=== PATIENT | female | born 1930 | race Caucasian/White ===

== ENCOUNTER 2016-11-08 23:57 | Inpatient (IN) | payer MEDICARE ==
--- NOTE | ~2016-11-08 | CO ---
Unit #: [id number] #: [id number] Patient: LYNNE COOPER [id number] [address] [address] [id number] I MR#: [id number] NAME: LYNNE COOPER ROOM: [facility] Age: 86 Sex: F Admission Date: 11/09/2016 : 1930 Attending Physician: Emery Dumas M.D. Primary Care Physician: Madi Ray M.D. Requesting Physician: Emery Dumas M.D. Consultation Date: 11/09/2016 CONSULTATION REPORT REASON FOR HOSPITALIZATION The patient is an 86-year-old white female with a history of coronary artery disease with stent in the RCA and mid ramus, hypertension, hyperlipidemia, sick sinus syndrome, thoracic aortic aneurysm, hypothyroidism, gastroesophageal reflux disease, chronic kidney disease, and peripheral arterial disease with right renal artery stenosis of 50% by angiogram in December 2014, who presented to the emergency room with headache, nausea, vomiting, back pain, urinary frequency, and chest pain. In the ER, her blood pressure was 272/102. Cardiac enzymes were normal. CBC was normal. Potassium was slightly low. GFR was 45. BNP 586. CT scan of the chest showed enlargement of her thoracic aortic aneurysm but no tear or rupture, and the patient is admitted for further evaluation. She has been treated with multiple antihypertensives and antinausea medicines overnight, and currently her blood pressure is 131/57 with a pulse of 94 and an O2 saturation of 94 as well, and she appears to be comfortable and resting. PAST MEDICAL HISTORY 1. Thoracic aortic aneurysm. 2. Osteoarthritis. 3. Gastroesophageal reflux disease. 4. Hiatal hernia. 5. Hypothyroidism. 6. History of Graves disease treated with I-131. 7. Hyperlipidemia. Why she is on no treatment I am not sure. 8. Hypertension. 9. Percutaneous drug-eluting stent x2 to mid right coronary in February 2015. 10. Stenosis of 50% in her right renal artery. PAST SURGICAL HISTORY Cataract extraction. ALLERGIES Iodine, sulfa drug, Asacol, lisinopril, Plendil, hydralazine, Cardura, and latex. MEDICATIONS PRIOR TO ADMISSION 1. Plavix 75 mg daily. 2. Protonix 40 mg b.i.d. 3. Aspirin 81 mg daily. 4. Levothyroxine 112 mcg daily. 5. Losartan 100 mg daily. 6. Catapres 0.2 mg daily and 0.1 mg at bedtime. Unit #: [id number] #: [id number] Patient: LYNNE COOPER 7. Metoprolol 25 mg a.m. and 12.5 mg at bedtime. 8. Nitrostat p.r.n. 9. Iron tablets 1 daily. 10. Neurontin 100 mg at bedtime. 11. Zanaflex 2 mg t.i.d. 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 She is a prior smoker but quit many years ago. Denies any alcohol or drug use. Lives alone. PHYSICAL EXAMINATION GENERAL: She is awake, alert, oriented x3, and in no acute distress. VITAL SIGNS: Mentioned above. HEENT: Unremarkable. NECK: Supple without JVD, bruits, adenopathy, or thyromegaly. CHEST: Clear to auscultation. HEART: Regular rate and rhythm, without any murmurs, rubs, or gallops. ABDOMEN: Soft, nondistended, and nontender, with positive bowel sounds and no hepatosplenomegaly. EXTREMITIES: No clubbing, cyanosis, or edema. GENITOURINARY/RECTAL: Deferred. NEUROLOGIC: Grossly intact. DIAGNOSTIC STUDIES LABORATORY: Cardiac enzymes normal x4 sets. CBC normal. PT and PTT normal. CMP normal except for a random blood sugar of 161, potassium 3.2, and GFR of 45.4. BNP was 586. Urinalysis normal. TSH within normal limits. IMAGING: Chest x-ray with no active disease. Some pulmonary fibrosis, ectasia of the descending aorta, and COPD. CT scan of the head with no active disease. CT scan of the abdomen and pelvis with no active disease. Diverticulosis. CT scan of the chest with emphysema, pulmonary fibrosis, and a 4.1 cm mid thoracic aortic aneurysm 4.4 cm distally without tear or rupture. CARDIOLOGY: EKG sinus tachycardia, PVCs, (1) LVH. IMPRESSION 1. Accelerated hypertension. 2. Atypical chest pain. 3. Coronary artery disease, status post right coronary artery stent. 4. Peripheral artery disease with thoracic aortic aneurysm and right renal artery stenosis. 5. Chronic kidney disease stage 3. 6. Hypokalemia. 7. Hypothyroidism, on supplementation. 8. Hiatal hernia. 9. Gastroesophageal reflux disease. PLAN Recheck potassium, check magnesium, and follow protocol. Lovenox for DVT prophylaxis. Patient is currently on a Cardene drip with adjustments in her medicine. Echocardiogram has been done for the elevated BNP with results pending. Her home medications have been resumed with the addition of Lasix 40 mg daily and clonidine increased to 0.1 t.i.d. She is on labetalol 200 mg b.i.d., losartan 100 mg b.i.d., and again, the Cardene drip which seems to be working well currently. Unit #: [id number] #: [id number] Patient: LYNNE COOPER Dictated by... Tammy Mcdowell/dino TD: 11/09/2016 22:14 JOB #: [id number] CONSULTATION REPORT Page 1 of 1 X Madi Ray MD X CONSULTATION REPORT
--- NOTE | ~2016-11-08 | EKG ---
PATIENT: LYNNE COOPER UNIT #: [id number] Ventricular Rate: 68 BPM Atrial Rate: 68 BPM P-R Interval: 154 ms QRS Duration: 88 ms Q-T Interval: 422 ms QTC Calculation(Bezet): 448 ms P [place]: 14 degrees Calculated R [place]: -12 degrees Calculated T [place]: 11 degrees Diagnosis Line: Normal sinus rhythm Diagnosis Line: Voltage criteria for left ventricular hypertrophy Diagnosis Line: ST abnormality, possible digitalis effect Diagnosis Line: Abnormal ECG Diagnosis Line: When compared with ECG of 12-NOV-2016 07:14, Diagnosis Line: No significant change was found Diagnosis Line: Confirmed by YESENIA DIMAS MD ([id number]) on Diagnosis Line: 11/13/2016 9:57:19 PM INTERPRETING : KEMI
--- NOTE | ~2016-11-08 | DS ---
Unit #: [id number] #: [id number] Patient: LYNNE COOPER [id number] [address] [place], [place] [address] [id number] I MR#: [id number] NAME: LYNNE COOPER ROOM: 578 Age: 86 Sex: F Admission Date: 11/09/2016 : 1930 Discharge Date: Attending Physician: Emery Dumas M.D. Primary Care Physician: Madi Ray M.D. DISCHARGE SUMMARY DISCHARGE DIAGNOSES 1. Npn-ZK-eqkcmelvt myocardial infarction. 2. In 2005, had PCI with stents to the distal RCA, the mid ramus and a plain old balloon angioplasty to the distal ramus. 3. Cardiac catheterization performed by Dr. Dumas on 11/13/2016 shows stents in the mid RCA patent, PDL branch of the RCA was normal but the PLV branch shows a 70% stenosis at the origin, left circumflex stent in obtuse marginal was patent. Obtuse marginal was 100% with a DAVY-1 flow gross new lesion. LAD showed the stent in the proximal LAD patent with 99% distal stenosis, unchanged. LV was not done on the cath. Recommendations per Dr. Dumas medical management. 4. Acute kidney injury secondary to contrast, questionable volume depletion. 5. Hypertension. 6. Hyperlipidemia. 7. Chronic obstructive pulmonary disease. 8. 2D echo 11/09/2016 showed LVEF of 65% to 70% with moderate left ventricular hypertrophy, mild aortic regurgitation, mild mitral regurgitation, mild mitral valve prolapse, moderate tricuspid regurgitation with elevated RVSP 45 mmHg. 9. Hypothyroidism. 10. History of descending thoracic aneurysm with dilatation up to 4.4 cm. DISCHARGE MEDICATIONS 1. Hydrochlorothiazide 12.5 mg p.o. daily, prescribed by Nephrology. 2. Neurontin 100 mg p.o. h.s. 3. Atorvastatin 80 mg p.o. h.s. 4. Amlodipine 10 mg p.o. daily. 5. Metoprolol 25 mg p.o. b.i.d. 6. Ferrous sulfate one tablet p.o. daily. 7. Aspirin 81 mg daily. 8. Plavix 75 mg p.o. daily. 9. It is noted the patient could not afford the Brilinta, the cost of the Brilinta was too expensive for the patient as it was sixty-seven dollars a month. 10. Protonix 40 mg p.o. b.i.d. 11. Tizanidine 2 mg p.o. t.i.d. p.r.n. for muscle spasms. 12. Levothyroxine 0.112 mg p.o. daily. 13. Imdur ER 30 mg p.o. daily. 14. Nitrostat 0.4 mg sublingual p.r.n. for chest pain. HOSPITAL COURSE This is an 86-year-old white female who came to the emergency room with some chest pain, headache and dizziness. She had been out to dinner with Unit #: [id number] #: [id number] Patient: LYNNE COOPER and just started feeling bad. She had some slight nausea and became very weak. They brought her into the hospital due to her symptoms and her blood pressure was found to be elevated at 239/106 mmHg. She was treated with labetalol. CT of the head was done and it did not show anything acute. She did have a CT of the abdomen and pelvis and it showed her descending thoracic aorta aneurysm was 4.1 cm which was stable. Chest x-ray did not show anything acute. EKG showed sinus bradycardia. Initially her cardiac enzymes were negative. Her BNP was 586. Patient had been started initially on amlodipine but she reported that it has caused side effects in the past of leg edema and palpitations so it was stopped. We temporarily stopped the Imdur at the beginning of admission because of headaches. After admission, her troponin did elevate to indicate that she had a izf-QN-kjomlxden myocardial infarction. The patient said that she did have some substernal chest tightness, that occasionally would radiate to her back and to her left arm with some numbness initially when she came in the hospital and her blood pressure was really elevated. With patient having known history of coronary artery disease with previous stents, Dr. Dumas felt she needed to have her ischemic heart disease re-evaluated. The patient was initiated on a statin besides aspirin and Lovenox. Renal was consulted due to patient having known chronic kidney disease. On admission, her creatinine was 1.1. She did have a heart catheterization on 11/13/[address] Dumas without the LV gram. The results of the cardiac catheterization were stated above in the discharge diagnoses. Dr. Dumas recommended continued medical treatment. After admission, the patient did have some nausea and vomiting and some epigastric pain and Dr. Cisneros thought it might be due to some gastritis. He wanted just to treat medically with PPIs and symptomatic treatment. He wanted to hold off on any intervention unless she had overt bleeding because of having the acute myocardial infarction. Besides the patient being on Lovenox, aspirin, statin, and beta kadi, patient was started on Brilinta 60 mg p.o. b.i.d. manager music evaluated the cost and it was $67 and with all the patient's other cost of heart medications and other things she needs to buy, she felt like she could not afford it so it was changed to Plavix. Patient's troponin trended downward. Also her creatinine was normalizing. After the cath, she did have some possibly contrast-induced kidney injury or possibly from volume depletion. The patient did have a round of IV fluids of normal saline at 100 mL per hour. Today, the patient is feeling good. She denies any nausea, vomiting or abdominal pain. She wants to go home. Nephrology wants to hold off on using an PRESLEY inhibitor or an ARB for now. They recommended hydrochlorothiazide and beta kaid for blood pressure control. Dr. Gutierrez, with Nephrology, wants the patient to come back to see her in four weeks and make an appointment to see Dr. Dumas in December. On day of discharge, patient is in stable condition. Vital signs are stable. PHYSICAL EXAMINATION ON DISCHARGE VITAL SIGNS: Blood pressure 153/60, heart rate 80, respirations 16, temperature 99.1 and later 98.4, O2 saturations 96% on room air. HEART: S1, S2. Regular rate and rhythm. Unit #: [id number] #: [id number] Patient: LYNNE COOPER LUNGS: Diminished but clear. ABDOMEN: Soft, nontender. EXTREMITIES: Pedal pulses are palpable but weak. No pedal edema. DIAGNOSTIC STUDIES LABORATORY: Glucose 120, BUN 17, creatinine 1.2, EGFR 40.9, sodium 135, potassium 3.7, chloride 103, CO2 is 23, uric acid 8.2, calcium 9.0, phosphorus 4.1, magnesium 1.9, total protein 6.3. Latest troponin was 0.33. Her troponin peaked at 4.98. Fasting lipid profile cholesterol 151, triglycerides 123, LDL 89, HDL 37. TSH 4.39. WBC 8.7, hemoglobin 11.5, hematocrit 35.1, platelets 247. IMAGING: Last chest x-ray showed no significant change. No new infiltrates. Stable for fibrotic changes. Ultrasound of bilateral kidneys showed that they were normal. CARDIOVASCULAR: EKG shows normal sinus rhythm, left ventricular hypertrophy. PLAN/INSTRUCTIONS 1. Patient will be discharged home today and follow up with Dr. Dumas on December 22, at 2:30 p.m. 2. Patient will follow up with Nephrology, Dr. Gutierrez, in about 4 weeks. Their phone number is [phone]. 3. Instruct the patient to have a BMP at her primary care physician's office within a week. Information provided to the patient. 4. Right radial wrist, cardiac catheterization site, is without oozing or hematoma. There is a moderate amount of bruising. The patient has been given instructions post heart catheterization. 5. Continue home medications and see discharge medication reconciliation from [facility] for correct medications on discharge. Dictated by... Ann Marie Saucedo A.P.R.N. for Tammy Jimenez/jorje TD: 11/16/2016 15:30 JOB #: [id number] DISCHARGE SUMMARY Page 1 of 1 X Ann Marie Saucedo APRN DISCHARGE SUMMARY
--- NOTE | ~2016-11-08 | EKG ---
PATIENT: LYNNE COOPER UNIT #: [id number] Ventricular Rate: 77 BPM Atrial Rate: 77 BPM P-R Interval: 146 ms QRS Duration: 86 ms Q-T Interval: 418 ms QTC Calculation(Bezet): 473 ms P [place]: 51 degrees Calculated R [place]: -28 degrees Calculated T [place]: 23 degrees Diagnosis Line: Normal sinus rhythm Diagnosis Line: Possible Left atrial enlargement Diagnosis Line: Left ventricular hypertrophy Diagnosis Line: Nonspecific ST abnormality Diagnosis Line: Abnormal ECG Diagnosis Line: When compared with ECG of 09-NOV-2016 14:52, Diagnosis Line: (unconfirmed) Diagnosis Line: Significant changes have occurred Diagnosis Line: Confirmed by YESENIA DIMAS MD ([id number]) on Diagnosis Line: 11/10/2016 11:21:32 PM INTERPRETING MD: KEMI
--- NOTE | ~2016-11-08 | CO ---
Unit #: [id number] #: [id number] Patient: LYNNE VELEZ [id number] [address] [place], [place] [address] [id number] I MR#: [id number] NAME: LYNNE VELEZ. ROOM: [facility] Age: 86 Sex: F Admission Date: 11/09/2016 : 1930 Attending Physician: Emery Dumas M.D. Primary Care Physician: Madi Ray M.D. Consultation Date: 11/10/2016 CONSULTATION REPORT REASON FOR CONSULTATION Epigastric pain. HISTORY OF PRESENT ILLNESS Ms. Velez is an 86-year-old pleasant lady. Presented to the emergency room with chest pain and multiple symptoms. Found to be having acute AL and being treated for the same. Patient is known to me from before. She has been having epigastric pain off and on intermittently with some nausea. No vomiting. No hematemesis. No bright red blood in the stool. She has no dysphagia either. She has a history of chronic GERD symptoms, also. PAST HISTORY Significant for coronary artery disease status post stent placements, on blood thinners, hypertension, hyperlipidemia, hypothyroidism. ALLERGIES Multiple. List reviewed. MEDICATIONS She is currently on Protonix 40 mg IV b.i.d., Plavix, aspirin, levothyroxine, losartan, Catapres, Metoprolol, Nitrostat, iron, Neurontin and Zanaflex. SOCIAL HISTORY Nonsmoker. Nonalcoholic. FAMILY HISTORY Not contributory. REVIEW OF SYSTEMS Complete 10-point review of systems was done, which is unremarkable other than as mentioned above. PHYSICAL EXAM VITAL SIGNS: Vital signs are stable. Afebrile. GENERAL: No acute distress. HEENT: Pupils equal and reactive. Sclera anicteric. Oral mucosa moist. NECK: No JVD. No lymphadenopathy. CHEST: Diffuse scattered rhonchi. CARDIOVASCULAR SYSTEM: Regular rate, rhythm. No murmurs. ABDOMEN: Soft, nontender, nondistended. EXTREMITIES: Without clubbing, cyanosis or edema. NEUROLOGIC: Intact. SKIN: Warm. Unit #: [id number] #: [id number] Patient: LYNNE VELEZ DIAGNOSTIC STUDIES LABS: CBC is completely normal. LFTs normal. BUN and creatinine elevated. IMAGING: CT scan abdomen and pelvis is without any acute disease. ASSESSMENT AND PLAN 1. Patient with recurrent acute intermittent mild epigastric pain. Previous EGD in 2014 showed gastritis. There was biopsy, negative, along with small hiatal hernia. At this point we continue with PPIs and symptomatic treatment. Given the AL I would hold off on any intervention unless she has overt bleeding. 2. Acute myocardial infarction. Treatment per Dr. Dumas. Thank you, Dr. Dumas, for this interesting consult. Will follow along. Dictated by... Tammy Meade/isaias TD: 11/11/2016 11:28 JOB #: [id number] CONSULTATION REPORT Page 1 of 1 X Adrien Cisneros MD X CONSULTATION REPORT
--- NOTE | ~2016-11-08 | EKG ---
PATIENT: LYNNE COOPER UNIT #: [id number] Ventricular Rate: 105 BPM Atrial Rate: 105 BPM P-R Interval: 166 ms QRS Duration: 162 ms Q-T Interval: 388 ms QTC Calculation(Bezet): 512 ms P [place]: 66 degrees Calculated R [place]: -43 degrees Calculated T [place]: -25 degrees Diagnosis Line: Sinus tachycardia with occasional Premature Diagnosis Line: ventricular complexes and Fusion complexes Diagnosis Line: Possible Left atrial enlargement Diagnosis Line: Left axis deviation Diagnosis Line: Left ventricular hypertrophy with QRS widening Diagnosis Line: Diffuse ST deptession consider subendocatrdial Diagnosis Line: injurty Diagnosis Line: Abnormal ECG Diagnosis Line: When compared with ECG of 08-NOV-2016 23:29, Diagnosis Line: (unconfirmed) Diagnosis Line: Significant changes have occurred Diagnosis Line: Confirmed by YESENIA DIMAS MD ([id number]) on Diagnosis Line: 11/10/2016 11:08:10 PM INTERPRETING MD: KEMI
--- NOTE | ~2016-11-08 | EKG ---
PATIENT: LYNNE COOPER UNIT #: [id number] Ventricular Rate: 56 BPM Atrial Rate: 56 BPM P-R Interval: 144 ms QRS Duration: 94 ms Q-T Interval: 436 ms QTC Calculation(Bezet): 420 ms P [place]: -5 degrees Calculated R [place]: -27 degrees Calculated T [place]: 27 degrees Diagnosis Line: Sinus bradycardia Diagnosis Line: Minimal voltage criteria for LVH, may be normal Diagnosis Line: variant Diagnosis Line: Borderline ECG Diagnosis Line: When compared with ECG of 01-FEB-2016 05:42, Diagnosis Line: Vent. rate has decreased BY 30 BPM Diagnosis Line: Confirmed by YESENAI DIMAS MD ([id number]) on Diagnosis Line: 11/10/2016 10:56:26 PM INTERPRETING MD: KEMI
--- NOTE | ~2016-11-08 | CR72 ---
[facility] A Service of [facility] RADIOLOGY TEXT RESULTS PATIENT: LYNNE COOPER LOCATION: [place] [address]-21 : 30 UNIT #: [id number] AGE: [address]: Emery Dumas MD SEX: F ORDER DR: [id number] [facility] [address]. [place], [place] [address] [id number] I MR#: [id number] Acc #: [id number] NAME: LNYNE COOPER : 1930 SEX: F STUDY DATE/TIME: 11/10/2016 8:35 UNIT: [facility] ROOM: [facility] STUDY DESCRIPTION: CR Chest Single View Portable Attending Physician: Emery Dumas M.D. Ordering Physician: Emery Dumas M.D. Primary Care Physician: Madi Ray M.D. MEDICAL IMAGING REPORT This report is preliminary unless electronic signature is present EXAM Portable chest INDICATION Chest and abdominal pain yesterday. COMPARISON Yesterday's study. FINDINGS Stable peripheral fibrotic changes. No new infiltrates. Heart size stable. Atherosclerotic calcification of the aorta. IMPRESSION No significant change in the appearance of the chest. Dictated by... Faizan Alan M.D. THIS IS AN ELECTRONICALLY VERIFIED REPORT Faizan Alan M.D. at 11/10/2016 4:05 PM Pepe TD: 11/10/2016 10:06 JOB #: [id number] MEDICAL IMAGING REPORT Page 1 of 1 COPY
--- NOTE | ~2016-11-08 | HP ---
Unit #: [id number] #: [id number] Patient: LYNNE COOPER [id number] [address] [place], [place] [address] [id number] I MR#: [id number] NAME: LYNNE COOPER ROOM: [facility] Age: 86 Sex: F Admission Date: 11/09/2016 : 1930 Attending Physician: Emery Dumas M.D. Primary Care Physician: Madi Ray M.D. HISTORY AND PHYSICAL HISTORY OF PRESENT ILLNESS This is an 86-year-old female who is known to Dr. Dumas who has a history of coronary artery disease for which she underwent angioplasty with stent placement to the distal right coronary artery and mid ramus intermedius branch with plain old balloon angioplasty to the distal ramus in September 2015. She is known to have hypertension, hyperlipidemia, sick sinus syndrome, and a remote history of nicotine abuse. The patient presented to the emergency room with multiple complaints including chest pain. She said she has had weakness, fatigue, frequent urination, nausea, headache, and back pain. She takes her blood pressure at home and says she has had elevation of her blood pressure ranging between 190 to over 200 mmHg. When her blood pressure is elevated, she has substernal chest tightness that occasional radiates to her back and into her left arm with numbness. Yesterday, she went to [employer] and before she could eat she felt so "bad." She had chest pain, headache, and dizziness. She felt nauseated and had weak, wobbly legs. She came to the emergency room for evaluation where her blood pressure was elevated at 239/106 mmHg. She was treated with labetalol. Presenting troponin was normal. There were no acute electrocardiogram changes. Even though she still works, she does not do much exercise because of weakness. She does report occasional palpitations. Denies syncope or near syncope. A urinalysis was negative. CT of the head, as well as CT of the abdomen and pelvis, showed no acute findings. She has known aneurysmal dilatation of the descending thoracic aorta which is slightly increased to 4.1. There was no evidence of dissection. PAST MEDICAL HISTORY 1. Cardiac catheterization on September 22, 2015, showed 90% stenosis in the terminal LAD which is small in caliber. Mid ramus intermedius 90% with distal ramus 95% stenosis. The distal right coronary artery with 80% stenosis. Left main normal. 2. Status post angioplasty with drug-eluting stent to the distal right coronary artery and mid ramus intermedius with plain old balloon angioplasty to the distal ramus branch on September 22, 2015. The terminal LAD 90% stenosis was not dilated because of small vessel. 3. A 2D echocardiogram on September 03, 2015, showed normal ejection fraction with impaired left ventricular relaxation. There was trace mitral regurgitation, mild tricuspid regurgitation, and trace aortic regurgitation. 4. Percutaneous coronary intervention with drug-eluting stent x2 in two areas of the mid right coronary artery in February 2015. 5. Hypertension. 6. Hyperlipidemia. Unit #: [id number] #: [id number] Patient: LYNNE COOPER 7. Hypothyroidism with history of thyroid goiter with iodine-131 radiation therapy. 8. Iodine allergy. 9. Anemia with history of EGD showing hiatal hernia and gastritis on March 05, 2015. 10. Gastroesophageal reflux disease. 11. Osteoarthritis. 12. Thoracic aortic dilatation. PAST SURGICAL HISTORY Cataract extraction. SOCIAL HISTORY Patient works as a elementary school principal. She quit smoking more than 60 years ago. She lives at home alone. She denies illicit drug and alcohol use. FAMILY HISTORY Negative for coronary artery disease. ALLERGIES Iodine, sulfa, lisinopril, mesalamine, Plendil, hydralazine, doxazosin, latex, and Band-Aids. HOME MEDICATIONS 1. Plavix 75 mg daily. 2. Protonix 40 mg b.i.d. 3. Aspirin 81 mg daily. 4. Levothyroxine 112 mcg daily. 5. Losartan 100 mg at bedtime. 6. Clonidine 0.2 mg daily and 0.1 mg at bedtime. 7. Metoprolol succinate 25 mg q.a.m. and 12.5 mg q.p.m. 8. Nitroglycerin 0.4 mg sublingual p.r.n. 9. Ferrous sulfate 1 tablet daily. 10. Neurontin 100 mg at bedtime. 11. Zanaflex 2 mg t.i.d. p.r.n. REVIEW OF SYSTEMS CONSTITUTIONAL: Negative for fever or chills. Reports weakness and fatigue. No weight gain or weight loss. HEENT: Positive for headache and dizziness. No hearing or visual changes or difficulty with swallowing. CARDIOVASCULAR: Chest pain and palpitations as described in the History of Present Illness. Denies paroxysmal nocturnal dyspnea or orthopnea. No syncope or near syncope. RESPIRATORY: Has reported dyspnea on exertion. No cough or hemoptysis. GASTROINTESTINAL: No abdominal pain, nausea, or vomiting. No constipation or melena. EXTREMITIES: Negative for lower extremity edema. PHYSICAL EXAMINATION VITAL SIGNS: Blood pressure 154/92, heart rate 64, and temperature 97.7. BMI is 22. GENERAL: This is an 86-year-old, well-developed, elderly white female who is in no acute distress. NEUROLOGICAL: She is awake, alert, and oriented. No focal weakness is noted. NECK: Trachea midline. No thyromegaly or lymphadenopathy. No jugular Unit #: [id number] #: [id number] Patient: LYNNE COOPER venous distention. HEART: S1 and S2 heart sounds are normal. No murmurs, rubs, or clicks. Regular rate and rhythm. LUNGS: Clear without rales, rhonchi, or wheezing. ABDOMEN: Soft and nontender with bowel sounds present. No masses appreciated. EXTREMITIES: Without leg edema. SKIN: Warm and dry. DIAGNOSTIC STUDIES LABORATORY: Hemoglobin 12.9, hematocrit 38.3, platelet count 210,000, and white count is 8.3. Sodium 140, potassium 3.2, BUN 13, creatinine 1.1, and glucose 161. Troponin less than 0.05 x2. BNP 586. TSH 4.39. Urinalysis with negative leukocytes and nitrites. IMAGING: Chest x-ray shows no active disease. Noted for COPD. CT of the head shows no acute intracranial abnormality. Mild diffuse chronic changes. CT of the abdomen and pelvis shows moderate sigmoid and descending colonic diverticulosis without evidence of acute diverticulitis. Abdominal aorta normal in caliber. CT of the chest shows generalized aneurysmal dilatation of the descending thoracic aorta measuring up to 4.4 cm. No evidence of hemorrhage, mediastinal fluid collection, or pericardial effusion. Diffuse pulmonary emphysema with mild to moderate pulmonary fibrosis. CARDIOLOGY: Electrocardiogram, sinus bradycardia, rate of 56 beats per minute, with left ventricular hypertrophy. IMPRESSION 1. Uncontrolled hypertension. 2. Headache of questionable etiology. 3. Stable angina. 4. History of percutaneous coronary intervention with stents to the distal right coronary artery and mid ramus and plain old balloon angioplasty to the distal ramus in September 2015. 5. Descending thoracic aneurysmal dilatation up to 4.4 cm with no evidence of dissection. 6. Hyperlipidemia. 7. History of hypothyroidism. 8. Preserved left ventricular systolic function with ejection fraction of 55%. PLAN 1. Will continue labetalol for blood pressure control. 2. Amlodipine will be discontinued as it has caused side effects of leg edema and palpitations in the past. 3. Discontinue Imdur because of headaches. 4. Further control blood pressure with increase in clonidine to 0.1 mg t.i.d. and increase in Cozaar to 100 mg b.i.d. 5. Will add diuretic for blood pressure control. 6. Supplement potassium. 7. Will wean off nitroglycerin drip and transfer the patient to telemetry. 8. Will have Dr. Ray to see the patient for medical management. 9. Increase Neurontin for headache and anxiety. 1. Dictated by Christoph SierraPMartinaRMartinaNMartina for Unit #: [id number] #: [id number] Patient: LYNNE COOPER M.D. AEP/dino TD: 11/09/2016 14:31 JOB #: [id number] HISTORY AND PHYSICAL Page 1 of 1 X Juan Wilkerson APRN X HISTORY AND PHYSICAL
--- NOTE | ~2016-11-08 | EKG ---
PATIENT: LYNNE COOPER UNIT #: [id number] Ventricular Rate: 67 BPM Atrial Rate: 67 BPM P-R Interval: 138 ms QRS Duration: 92 ms Q-T Interval: 426 ms QTC Calculation(Bezet): 450 ms P Dupont: 20 degrees Calculated R Dupont: -36 degrees Calculated T Dupont: 27 degrees Diagnosis Line: Normal sinus rhythm Diagnosis Line: Left axis deviation Diagnosis Line: ST abnormality, possible digitalis effect Diagnosis Line: Borderline ECG Diagnosis Line: No previous ECGs available Diagnosis Line: Confirmed by PAMELA BERRIOS MD ([id number]) on 11/12/2016 Diagnosis Line: 10:50:44 PM INTERPRETING MD: AGUSTINA VALENZUELA
--- NOTE | ~2016-11-08 | US77 ---
[facility] A Service of [facility] RADIOLOGY TEXT RESULTS PATIENT: LYNNE COOPER LOCATION: [place] [address] : 30 UNIT #: [id number] AGE: [address]: Emery Dumas MD SEX: F ORDER DR: [id number] [facility] [address] [place], [place] [address] [id number] I MR#: [id number] #: [id number] NAME: LYNNE COOPER. : 1930 SEX: F STUDY DATE/TIME: 11/15/2016 15:26 UNIT: [facility] ROOM: [facility] STUDY DESCRIPTION: US Kidney Bilateral Complete Attending Physician: Emery Dumas M.D. Ordering Physician: Hope Navarro M.D. Primary Care Physician: Madi Ray M.D. MEDICAL IMAGING REPORT This report is preliminary unless electronic signature is present EXAM Bilateral renal ultrasound, 11/15/2016. HISTORY Increased frequency of urination with occasional burning and decrease in output. Hypertension. No relevant surgical history. TECHNIQUE Real-time ultrasonography of the kidneys performed bilaterally. COMPARISON CT examination 11/09/2016. FINDINGS There is also a renal ultrasound from 01/05/2015. Visualized urinary bladder unremarkable. The right kidney measures 8.79 cm in greatest length. No hydronephrosis or nephrolithiasis. No cystic or solid mass lesion. No perinephric fluid collection. Adjacent right hepatic lobe unremarkable. The left kidney measures 8.38 cm in greatest length. No hydronephrosis or nephrolithiasis. No cystic or solid mass lesion. No perinephric fluid collection. IMPRESSION 1. Bilateral kidneys normal in appearance. No evidence of renal calculi or obstruction. No cystic or solid mass lesion and no perinephric fluid collections. 2. Small amount of urine in urinary bladder. No focal bladder wall abnormality suggested. Dictated by... Tejas Barillas M.D. [facility] A Service of [facility] RADIOLOGY TEXT RESULTS PATIENT: LYNNE COOPER LOCATION: [facility] : 30 UNIT #: [id number] AGE: [address]: Emery Dumas MD SEX: F ORDER DR: THIS IS AN ELECTRONICALLY VERIFIED REPORT Tejas Barillas M.D. at 11/16/2016 10:54 PM Carolin TD: 11/15/2016 16:54 JOB #: [id number] MEDICAL IMAGING REPORT Page 1 of 1 COPY
--- NOTE | ~2016-11-08 | CT57 ---
[facility] A Service of [facility] RADIOLOGY TEXT RESULTS PATIENT: LYNNE COOPER LOCATION: [facility] : 30 UNIT #: [id number] AGE: [address]: Carolina Forte MD SEX: F ORDER DR: [id number] [facility] [address] [place], [place] [address] [id number] E MR#: [id number] Acc #: [id number] NAME: LYNNE COOPER : 1930 SEX: F STUDY DATE/TIME: 11/09/2016 1:46 UNIT: [facility] ROOM: STUDY DESCRIPTION: CT Chest Wo Cont Attending Physician: Carolina Forte M.D. Ordering Physician: Carolina Forte M.D. Primary Care Physician: Madi Ray M.D. MEDICAL IMAGING REPORT This report is preliminary unless electronic signature is present EXAM CT chest, noncontrast, 11/09/2016 HISTORY 86-year-old female in the ED complaining of new onset back pain, nausea, chest pressure and generalized abdomen pain. History of aortic aneurysm. TECHNIQUE CT examination of the chest was performed without IV contrast as requested. This CT exam was performed with one or more of the following radiation dose reduction techniques: automatic exposure control, adjustment of mA and/or kV according to patient size, and iterative reconstruction. COMPARISON CT chest 09/01/2012. Lower chest images from abdomen CT 04/17/2016. FINDINGS There is diffuse aneurysmal dilatation of the descending thoracic aorta. Mid descending aorta at the level of the juuj has increased from 3.7 cm on the 2012 exam to 4.1 cm today. Low descending aortic aneurysmal dilatation is stable at 4.4 cm. Ascending thoracic aorta and aortic arch remain normal in caliber. There is no evidence of periaortic hemorrhage, mediastinal fluid collection or pericardial effusion. Moderate diffuse pulmonary emphysema and mild to moderate diffuse fibrosis throughout the periphery of both lungs. No acute pulmonary infiltrate or pleural effusion. IMPRESSION 1. Generalized aneurysmal dilatation of the descending thoracic aorta as noted above. The low descending aorta measures about 4.4 cm today [facility] A Service of [facility] RADIOLOGY TEXT RESULTS PATIENT: LYNNE COOPER [id number] 30 UNIT #: [id number] AGE: [address]: Carolina Forte MD SEX: F ORDER DR: and is unchanged since abdomen CT study of 04/17/2016. The mid descending aorta at the level of the juju has increased in caliber from 3.7 cm on 09/01/2012 to 4.1 cm today. 2. There is no evidence of periaortic hemorrhage, mediastinal fluid collection, pericardial effusion or additional acute abnormality. 3. Ascending thoracic aorta and transverse aortic arch remain normal in caliber. 4. Diffuse pulmonary emphysema. Glsq-hx-zsogbumb pulmonary fibrosis throughout the periphery of both lungs. Dictated by... Gilberto Coronado M.D. THIS IS AN ELECTRONICALLY VERIFIED REPORT Gilberto Coronado M.D. at 11/09/2016 5:59 AM DENNY/benito TD: 11/09/2016 03:14 JOB #: [id number] MEDICAL IMAGING REPORT Page 1 of 1 COPY
--- NOTE | ~2016-11-08 | CT4 ---
[facility] A Service of [facility] RADIOLOGY TEXT RESULTS PATIENT: LYNNE COOPER LOCATION: [facility] : 30 UNIT #: [id number] AGE: [address]: Carolina Forte MD SEX: F ORDER DR: [id number] [facility] [address] [place], [place] [address] [id number] E MR#: [id number] Acc #: [id number] NAME: LYNNE COOPER : 1930 SEX: F STUDY DATE/TIME: 11/09/2016 1:46 UNIT: [facility] ROOM: STUDY DESCRIPTION: CT Abd and Pelv Wo Cont Attending Physician: Carolina Forte M.D. Ordering Physician: Carolina Forte M.D. Primary Care Physician: Madi Ray M.D. MEDICAL IMAGING REPORT This report is preliminary unless electronic signature is present EXAM CT abdomen and pelvis, noncontrast, 11/09/2016 HISTORY 86-year-old female in the ED complaining of new onset chest pressure, abdomen pain and back pain earlier today. History of aortic aneurysm. Nausea. TECHNIQUE CT examination of the abdomen and pelvis was performed as requested without oral or IV contrast administration. This CT exam was performed with one or more of the following radiation dose reduction techniques: automatic exposure control, adjustment of mA and/or kV according to patient size, and iterative reconstruction. FINDINGS ABDOMEN: Diffuse aneurysmal dilatation of the descending thoracic aorta, best seen on chest CT obtained today. Abdominal aorta is normal in caliber. There is no periaortic hematoma or other fluid collection. Liver, pancreas and spleen are normal in size and appearance. Both kidneys are negative with no evidence of urinary obstruction. Moderate sigmoid and descending colonic diverticulosis. No evidence of acute diverticulitis. Small bowel and colon are otherwise normal in caliber and appearance, as imaged. PELVIS: Uterus, ovaries, bladder and rectum are negative. No inguinal hernia or abdominal wall hernia. IMPRESSION [facility] A Service of [facility] RADIOLOGY TEXT RESULTS PATIENT: LYNNE COOPER [facility]: [id number] 30 UNIT #: [id number] AGE: [address]: Carolina Forte MD SEX: F ORDER DR: 1. No acute abnormality within the abdomen or pelvis. Abdominal aorta is normal in caliber. See chest CT reported separately. 2. Moderate sigmoid and lower descending colonic diverticulosis. Dictated by... Gilberto Coronado M.D. THIS IS AN ELECTRONICALLY VERIFIED REPORT Gilberto Coronado M.D. at 11/09/2016 5:59 AM DENNY/abdoul TD: 11/09/2016 03:01 JOB #: [id number] MEDICAL IMAGING REPORT Page 1 of 1 COPY
--- NOTE | ~2016-11-08 | CO ---
Unit #: [id number] #: [id number] Patient: LYNNE VELEZ [id number] [address] [place], [place] [address] [id number] I MR#: [id number] NAME: LYNNE VELEZ ROOM: [facility] Age: 86 Sex: F Admission Date: 11/09/2016 : 1930 Attending Physician: Emery Dumas M.D. Primary Care Physician: Madi Ray M.D. Consultation Date: 11/10/2016 CONSULTATION REPORT REASON FOR CONSULTATION Acute kidney injury. HISTORY OF PRESENT ILLNESS Ms. Velez is a very pleasant 86-year-old white female with a known history of coronary artery disease and hypertension who presented to the hospital with several complaints including some chest pain and pressure as well as nausea and an episode of vomiting. She also had a headache and felt weak. The patient tells me that she has been having trouble controlling her blood pressure as of late and she did have hypertensive urgency on admission. She was placed on a Cardene drip for her blood pressure which improved her readings and actually dropped her as low as 98/48. She is now off of her blood pressure Cardene drip. She has ruled in for a evv-KN-gzjcdxtpf myocardial infarction and is being seen by Cardiology. She still feels a little chest pressure and Dr. Dumas has ordered some nitroglycerin paste and Brilinta. She denies any shortness of breath. No swelling issues. She does use some occasional ibuprofen at home and she thinks she took a dose on Sunday. No history of kidney stones. No urinary complaints. No rashes or itching. PAST MEDICAL HISTORY Significant for: 1. Chronic kidney disease, stage 3. 2. Hypertension. 3. Coronary artery disease with previous stenting. 4. Hyperlipidemia. 5. Hypothyroidism. 6. History of anemia. 7. GERD. 8. Osteoarthritis. 9. Thoracic aortic dilatation. PAST SURGICAL HISTORY Cataract extraction according to the notes. CURRENT MEDICATIONS 1. She is getting half normal saline at 50 mL per hour. 2. Brilinta 180 mg p.o. today. 3. Nitroglycerin paste one-half inch b.i.d. 4. Baby aspirin daily. 5. Synthroid 112 mcg daily. 6. Clonidine 0.2 mg p.o. t.i.d. 7. Iron tablet daily. 8. Labetalol 200 mg b.i.d. Unit #: [id number] #: [id number] Patient: LYNNE VELEZ 9. Lasix was just stopped. 10. Cozaar was just stopped. 11. Neurontin 100 mg b.i.d. 12. Protonix 40 mg IV bid 13. Lovenox 60 mg subcu daily. 14. Potassium magnesium protocol. ALLERGIES 1. Iodine. 2. Sulfa drugs. 3. Lisinopril. 4. Asacol. 5. Felodipine 6. Hydralazine. 7. Doxazosin. 8. Latex causes rashes. SOCIAL HISTORY Patient still works as a aboriginal home school liaison officer. She is a former smoker in her teenage years but none since. No alcohol or drug use. She is independent and lives alone. FAMILY HISTORY Negative for heart disease. She denies any family history of kidney problems or dialysis. REVIEW OF SYSTEMS A complete 12-point review of systems was completed with the above findings. In addition. She says her headache is now gone. No blurry or double vision. No nose bleed or sore throat. No earache, no palpitations. No cough or hemoptysis. No hematemesis with her vomiting. No abdominal pain or diarrhea, no bright red blood per rectum or melena. No hematuria. No pruritus. No flank pain, no fevers, no chills, no night sweats or hot flashes. No intolerance to heat or cold. No bleeding issues. No recent weight changes. No anxiety or depression. Unless otherwise indicated the review of systems was negative. PHYSICAL EXAMINATION VITAL SIGNS: Afebrile, pulse 69, respiratory rate 18, blood pressure 126/59. Again, the blood pressure has dropped from a high of 239/106 to 98/48. I's and O's are positive by 265 mL. GENERAL: This is a very pleasant 86-year-old white female sitting up in bed, alert and oriented, in no acute distress. HEENT: Head is atraumatic, normocephalic. Eyes show pink conjunctivae with no scleral icterus. No nasal drainage or nosebleed. Oropharynx is moist, no thrush. NECK: No JVD, no rigidity. HEART: Regular rate and rhythm with no murmurs, gallops, or rubs appreciated. LUNGS: Clear with no wheezing or rhonchi. Breathing is nonlabored. ABDOMEN: Soft, nontender, nondistended. Bowel sounds are very active and I do not hear any abdominal bruits. EXTREMITIES: No lower extremity cyanosis or pitting edema. SKIN: Dry with no rashes. MUSCULOSKELETAL: No CVA tenderness to palpation. No joint effusions. NEUROLOGIC: Cranial nerves II-XII are grossly intact with no gross motor deficits. LYMPHATICS: There is no neck cervical lymphadenopathy. Unit #: [id number] #: [id number] Patient: LYNNE VELEZ PSYCHIATRIC: Mood and affect appear normal. DIAGNOSTIC STUDIES LABORATORY: Troponin now is 3.45. Complete metabolic panel showed a sodium of 136, potassium 3.9, chloride 100, bicarb 26, glucose 105, BUN 15, creatinine up to 1.7, magnesium 2.3. CBC showed a white count of 7, hemoglobin 12, platelet count 204. No peripheral eosinophilia. TSH was normal. Urinalysis on admission showed no blood or protein. BNP on admission was 586. Creatinine on admission was 1.1. Based on old labs, it looks like her baseline and creatinine is between 1.1 and 1.3 over the last year or year and a half. IMAGING: CT of the abdomen done on admission without contrast did not show any kidney abnormalities. I did see an old CT angiogram of the abdomen back in December 2014 that showed minimal stenosis at the left renal artery and a 50% on the right. ASSESSMENT AND PLAN 1. Djbcb-nl-vlourvr kidney disease stage 3. Certainly a baseline creatinine between 1 and 1.3 would suggest stage 3 chronic kidney disease in an 86-year-old female. With her bland urinalysis, I suspect this is related to hypertensive nephrosclerosis and small vessel atherosclerotic disease. Her acute kidney injury looks to be prerenal from blood pressure changes, moving from very high readings to lower readings in a short period of time on an PRESLEY inhibitor and diuretics. I do think we need to allow her blood pressures to stabilize in the 140 to 160 range and avoid hypotension at this time. Certainly agree with stopping her Cozaar and her Lasix. Dr. Dumas has started fluids and we will recheck labs in the morning. 2. Hypertensive urgency. This has improved. As far as her home medicines going forward, I would like to keep her on losartan assuming her kidney function does improve at discharge. Certainly her clonidine could be increased to three times a day and from there we would have to look at her allergies to titrate further medicines. 3. Hypokalemia. This is being replaced per protocol and has improved. 4. Huu-RC-pkqdpbovr myocardial infarction being managed by Cardiology. 5. 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 6. Again, we would like to see the blood pressure stabilize in the mid range of 140 to 160. I will be putting hold parameters on clonidine and labetalol to avoid further hypotension and allow renal recovery in case she needs another heart catheterization. Would like to thank Dr. Dumas for this consult and the opportunity to participate in the evaluation and care of Ms. Velez. Dictated by... Fernando De Leon Jr., M.Mary CASPER/jorje TD: 11/10/2016 16:36 Unit #: [id number] #: [id number] Patient: LYNNE VELEZ JOB #: [id number] CONSULTATION REPORT Page 1 of 1 X Fernando De Leon MD X CONSULTATION REPORT
--- NOTE | ~2016-11-08 | CR72 ---
[facility] A Service of [facility] RADIOLOGY TEXT RESULTS PATIENT: LYNNE COOPER LOCATION: [facility] : 30 UNIT #: [id number] AGE: [address]: Carolina Forte MD SEX: F ORDER DR: [id number] [facility] [address] [place], [place] [address] [id number] E MR#: [id number] Acc #: [id number] NAME: LYNNE COOPER : 1930 SEX: F STUDY DATE/TIME: 11/09/2016 0:02 UNIT: CASH ROOM: STUDY DESCRIPTION: CR Chest Single View Portable Attending Physician: Carolina Forte M.D. Ordering Physician: Carolina Forte M.D. Primary Care Physician: Madi Ray M.D. MEDICAL IMAGING REPORT This report is preliminary unless electronic signature is present EXAM Chest x-ray, 11/09/2016 HISTORY 86-year-old female in the ED complaining of chest pain, shortness of air, weakness beginning earlier today. TECHNIQUE AP portable chest x-ray. FINDINGS The examination shows COPD with scattered fibrotic scarring in the lung bases. No visible acute pulmonary infiltrate, pneumothorax or pleural effusion. Mild cardiomegaly with normal pulmonary vascularity. Diffusely dilated descending thoracic aorta. Chest x-ray findings are stable since the previous study of 01/31/2016. IMPRESSION 1. No active disease. 2. COPD and bibasilar scarring. 3. Ectatic descending thoracic aorta. 4. No change since 01/31/2016. Dictated by... Gilberto Coronado M.D. THIS IS AN ELECTRONICALLY VERIFIED REPORT Gilberto Coronado M.D. at 11/09/2016 5:58 AM GABRIELLAW/benito [facility] A Service of [facility] RADIOLOGY TEXT RESULTS PATIENT: LYNNE COOPER LOCATION: [facility] : 30 UNIT #: [id number] AGE: [address]: Carolina Forte MD SEX: F ORDER DR: TD: 11/09/2016 00:47 JOB #: [id number] MEDICAL IMAGING REPORT Page 1 of 1 COPY
--- NOTE | ~2016-11-08 | CT71 ---
[facility] A Service [facility] RADIOLOGY TEXT RESULTS PATIENT: LYNNE COOPER LOCATION: [facility] : 30 UNIT #: [id number] AGE: [address]: Carolina Forte MD SEX: F ORDER DR: [id number] [address] [address] [id number] E MR#: [id number] Acc #: [id number] NAME: LYNNE COOPER : 1930 SEX: F STUDY DATE/TIME: 11/09/2016 1:44 UNIT: [facility] ROOM: STUDY DESCRIPTION: CT Head Wo Contrast Attending Physician: Carolina Forte M.D. Ordering Physician: Carolina Forte M.D. Primary Care Physician: Madi Ray M.D. MEDICAL IMAGING REPORT This report is preliminary unless electronic signature is present EXAM CT head, noncontrast, 11/09/2016 HISTORY 86-year-old female in the ED complaining of new onset headache, back pain, nausea, chest pressure and generalized abdomen pain. History of aortic aneurysm. TECHNIQUE CT examination of the head without IV contrast. This CT exam was performed with one or more of the following radiation dose reduction techniques: automatic exposure control, adjustment of mA and/or kV according to patient size, and iterative reconstruction. FINDINGS No acute intracranial abnormality is demonstrated. Mild generalized cerebral cortical atrophy. Mild diffuse low-attenuation white matter changes, nonspecific but likely related to chronic small vessel disease. No evidence of intracranial hemorrhage, mass, mass effect, cerebral edema or hydrocephalus. IMPRESSION 1. No acute intracranial abnormality. 2. Mild diffuse chronic changes as noted above. [facility] A Service [facility] RADIOLOGY TEXT RESULTS PATIENT: LYNNE COOPER LOCATION: [facility] : 30 UNIT #: [id number] AGE: [address]: Carolina Forte MD SEX: F ORDER DR: Dictated by... Gilberto G. Waggener, M.D. THIS IS AN ELECTRONICALLY VERIFIED REPORT Gilberto Coronado M.D. at 11/09/2016 5:59 AM DENNY/abdoul TD: 11/09/2016 03:00 JOB #: [id number] MEDICAL IMAGING REPORT Page 1 of 1 COPY
[2016-11-08 23:52] LABS: POC - CKMB 2.6 ng/mL (0.0-7.9); POC - TROPONIN <0.05 ng/mL (<=0.05)
[2016-11-08 23:52] LABS: BASOPHIL% 0.4 % (0-2.5); EOSINOPHIL# 0.2 X10e3 (0-0.7); HEMATOCRIT 38.3 % (35.0-45.0); HEMOGLOBIN 12.9 gm/dL (12.0-16.0); LYMPHOCYTE# 0.9 X10e3 (1.0-3.5); LYMPHOCYTE% 11.3 % (17.0-45.0); MEAN CELL VOLUME 90.9 FL (83-96); MEAN CORPUSCULAR HEMOGLOBIN 30.6 PG (28-34); MEAN CORPUSCULAR HGB CONC 33.6 g/dL (30-36); MEAN PLATELET VOLUME 8.2 FL (6.5-11.5); MONOCYTE# 0.6 X10e3 (0-1.0); MONOCYTE% 7.2 % (3.0-12.0); NEUTROPHIL# 6.6 X10e3 (1.5-7.1); NEUTROPHIL% 79.1 % (40-75); PLATELET COUNT 210 X10e3 (140-420); RED BLOOD COUNT 4.22 X10e (3.90-5.30); RED CELL DISTRIBUTION WIDTH 13.4 % (11.0-15.5); WHITE BLOOD COUNT 8.3 X10e3 (4.0-10.5)
[~2016-11-08 23:57] MED LIST: AMLODIPINE BESYL5 MG PO; ASPIRIN81 M1 PO; ASPIRIN81 MG PO; BUSPAR PO; BUSPAR15 M2 PO; BUSPIRONE HCL10 M1 PO; CATAPRES0.1 MG PO; CENTRUM COMPLE1 EACH PO; CHEWABLE ASPIRI81 MG PO; CLONIDINE HCL0.1 MG PO; CLONIDINE PO; CLOPIDOGREL75 MG PO; COZAAR PO; FERRO-TIME325 MG PO; FLAXSEED OIL1000 M1 PO; HYDROCHLOROTHIA25 MG PO; IMDUR-ER30 M1 PO; IMDUR-ER30 M3 PO; K-DUR20 ME1 PO; LASIX20 MG PO; LEVOTHYROXINE PO; LEVOTHYROXINE100 MCG PO; LOPRESSOR PO; LORTAB 5/500 TA1 TA1 PO; LORTAB PO; LOSARTAN POTAS100 MG PO; LOSARTAN POTASS25 MG PO; LOSARTAN POTASS50 MG PO; METOPROLOL SUC100 MG PO; METOPROLOL SUCC25 MG PO; METOPROLOL SUCC50 MG PO; METOPROLOL TAR25 MG PO; MICRO-K10 MEQ PO; NITROSTAT0.4 MG SL; NORVASC PO; NORVASC10 MG PO; OMEGA-3 FISH OI1 CA1 PO; OMEPRAZOLE20 M1 PO; PANTOPRAZOLE SO40 MG PO; PHENERGAN PO; PLAVIX PO; POTASSIUM CHLO10 ME1 PO; POTASSIUM CHLO20 ME1 PO; PREVACID15 MG PO; PRILOSEC PO; PROTONIX PO; SYNTHROID112 MCG PO; SYNTHROID125 PO; ULTRAM PO; VITAMIN C PO; VITAMIN D PO; VITAMIN D32000 UNIT PO; ZOCOR20 MG PO; ZYLOPRIM PO; [UNRECOGNIZED DRUG - SUPPLY]
[2016-11-09] LABS: DIFF IND NO
[2016-11-09 00:12] LABS: PARTIAL THROMBOPLASTIN TIME 25.1 SECONDS (23.5-31.3); PROTHROMBIN TIME (PATIENT) 10.6 SECONDS (9.6-11.5)
[2016-11-09 00:16] LABS: ALBUMIN SERUM 4.3 g/dL (3.5-5.0); BILIRUBIN, DIRECT 0.1 mg/dL (0.0-0.2); BILIRUBIN,INDIRECT 0.7 mg/dL (0.0-0.9); BILIRUBIN,TOTAL 0.8 mg/dL (0.2-2.0); BUN/CREATININE RATIO 11.81; CALCIUM SERUM 9.7 mg/dL (8.4-10.2); CREATININE SERUM 1.1 mg/dL (0.6-1.4); GLOM FILT RATE Estimated 45.4 mL/min (>60); POTASSIUM 3.2 mmol/L (3.5-5.1); PROTEIN TOTAL SERUM 7.6 g/dL (6.0-8.3)
[2016-11-09 00:49] LABS: POC - CKMB 1.9 ng/mL (0.0-7.9); POC - TROPONIN <0.05 ng/mL (<=0.05)
[2016-11-09 01:32] LABS: POC - CKMB 1.6 ng/mL (0.0-7.9); POC - TROPONIN <0.05 ng/mL (<=0.05)
[2016-11-09] MEDS ORDERED: CLOPIDOGREL75 MG PO (03:29)
[2016-11-09] MEDS ORDERED: PROTONIX PO (03:30)
[2016-11-09] MEDS ORDERED: ASPIRIN81 M2 PO (03:30)
[2016-11-09] MEDS ORDERED: LEVOTHYROXINE100 MCG PO (03:31)
[2016-11-09] MEDS ORDERED: LOSARTAN POTAS100 MG PO (03:31)
[2016-11-09] MEDS ORDERED: CLONIDINE PO (03:32)
[2016-11-09] MEDS ORDERED: LOPRESSOR PO (03:32)
[2016-11-09] MEDS ORDERED: CLONIDINE HCL0.1 MG PO (03:32)
[2016-11-09] MEDS ORDERED: METOPROLOL SUCC25 MG PO ×2 (03:33→03:34)
[2016-11-09] MEDS ORDERED: NITROGYLCERIN SL (03:35)
[2016-11-09] MEDS ORDERED: FERRO-TIME325 MG PO (03:38)
[2016-11-09] MEDS ORDERED: NEURONTIN100 MG PO (03:39)
[2016-11-09] MEDS ORDERED: TIZANIDINE HCL2 M1 PO (03:46)
[2016-11-09 04:43] LABS: URINE SOURCE CLEAN CATCH
[2016-11-09 04:47] LABS: URINE BILIRUBIN NEG (NEG); URINE BLOOD NEG (NEG); URINE COLOR YELLOW; URINE GLUCOSE NEG (NEG); URINE KETONE NEG (NEG); URINE LEUKOCYTE ESTERASE NEG (NEG); URINE NITRATE NEG (NEG); URINE PROTEIN NEG (NEG); URINE SPECIFIC GRAVITY 1.008 (1.003-1.035); URINE UROBILINOGEN 0.2 MG/DL (NEG)
[2016-11-09 04:48] LABS: URINE APPEARANCE CLEAR
[2016-11-09 04:50] LABS: CULTURE INDICATED? NO
[2016-11-09 18:00] LABS: MAGNESIUM 1.7 mg/dL (1.6-3.0); POTASSIUM 3.1 mmol/L (3.5-5.1)
[2016-11-10 05:17] LABS: BASOPHIL% 0.7 % (0-2.5); EOSINOPHIL# 0.1 X10e3 (0-0.7); EOSINOPHIL% 1.5 % (0.0-7.0); HEMATOCRIT 36.8 % (35.0-45.0); LYMPHOCYTE% 14.5 % (17.0-45.0); MEAN CELL VOLUME 92.1 FL (83-96); MEAN CORPUSCULAR HEMOGLOBIN 30.1 PG (28-34); MEAN CORPUSCULAR HGB CONC 32.7 g/dL (30-36); MONOCYTE# 0.8 X10e3 (0-1.0); MONOCYTE% 11.7 % (3.0-12.0); NEUTROPHIL# 5.1 X10e3 (1.5-7.1); NEUTROPHIL% 71.6 % (40-75); PLATELET COUNT 204 X10e3 (140-420); RED CELL DISTRIBUTION WIDTH 13.7 % (11.0-15.5); WHITE BLOOD COUNT 7.1 X10e3 (4.0-10.5)
[2016-11-10 05:23] LABS: DIFF IND NO
[2016-11-10 06:46] LABS: ALBUMIN SERUM 3.7 g/dL (3.5-5.0); BILIRUBIN,TOTAL 1.3 mg/dL (0.2-2.0); BUN/CREATININE RATIO 8.82; CALCIUM SERUM 9.5 mg/dL (8.4-10.2); CREATININE SERUM 1.7 mg/dL (0.6-1.4); GLOM FILT RATE Estimated 26.8 mL/min (>60); MAGNESIUM 2.3 mg/dL (1.6-3.0); POTASSIUM 3.9 mmol/L (3.5-5.1); PROTEIN TOTAL SERUM 6.7 g/dL (6.0-8.3)
[2016-11-10 13:19] LABS: %MB 1.9 % (0.0-4.0); MB 18.4 ng/ml
[2016-11-11 04:51] LABS: ALBUMIN SERUM 3.4 g/dL (3.5-5.0); BILIRUBIN,TOTAL 1.3 mg/dL (0.2-2.0); BUN/CREATININE RATIO 12.66; CALCIUM SERUM 8.9 mg/dL (8.4-10.2); CREATININE SERUM 1.5 mg/dL (0.6-1.4); GLOM FILT RATE Estimated 31.2 mL/min (>60); POTASSIUM 3.7 mmol/L (3.5-5.1); PROTEIN TOTAL SERUM 6.3 g/dL (6.0-8.3)
[2016-11-12 06:45] LABS: BASOPHIL% 0.5 % (0-2.5); EOSINOPHIL# 0.4 X10e3 (0-0.7); EOSINOPHIL% 5.2 % (0.0-7.0); HEMATOCRIT 33.5 % (35.0-45.0); HEMOGLOBIN 11.2 gm/dL (12.0-16.0); LYMPHOCYTE# 0.8 X10e3 (1.0-3.5); LYMPHOCYTE% 11.1 % (17.0-45.0); MEAN CELL VOLUME 92.2 FL (83-96); MEAN CORPUSCULAR HEMOGLOBIN 30.8 PG (28-34); MEAN CORPUSCULAR HGB CONC 33.5 g/dL (30-36); MEAN PLATELET VOLUME 8.8 FL (6.5-11.5); MONOCYTE# 0.9 X10e3 (0-1.0); MONOCYTE% 11.9 % (3.0-12.0); NEUTROPHIL# 5.5 X10e3 (1.5-7.1); NEUTROPHIL% 71.3 % (40-75); PLATELET COUNT 187 X10e3 (140-420); RED BLOOD COUNT 3.63 X10e (3.90-5.30); RED CELL DISTRIBUTION WIDTH 13.5 % (11.0-15.5); WHITE BLOOD COUNT 7.6 X10e3 (4.0-10.5)
[2016-11-12 06:48] LABS: DIFF IND NO
[2016-11-12 07:44] LABS: BUN/CREATININE RATIO 17.5; CALCIUM SERUM 9.2 mg/dL (8.4-10.2); CREATININE SERUM 1.2 mg/dL (0.6-1.4); GLOM FILT RATE Estimated 40.9 mL/min (>60); MAGNESIUM 1.9 mg/dL (1.6-3.0); POTASSIUM 4.3 mmol/L (3.5-5.1)
[2016-11-12 07:47] LABS: CHOLESTEROL 151 mg/dL (0-200); HDL CHOLESTEROL 37 mg/dL (35-95); LDL CHOLESTEROL 89 mg/dL (-130); LDL/HDL RATIO 2 RATIO (0-4); TRIGLYCERIDES 123 mg/dL (10-160)
[2016-11-13 06:14] LABS: HEMATOCRIT 40.1 % (35.0-45.0); MEAN CELL VOLUME 92.3 FL (83-96); MEAN CORPUSCULAR HGB CONC 32.5 g/dL (30-36); MEAN PLATELET VOLUME 9.2 FL (6.5-11.5); RED BLOOD COUNT 4.34 X10e (3.90-5.30); RED CELL DISTRIBUTION WIDTH 13.3 % (11.0-15.5); WHITE BLOOD COUNT 8.5 X10e3 (4.0-10.5)
[2016-11-13 06:28] LABS: PARTIAL THROMBOPLASTIN TIME 37.3 SECONDS (23.5-31.3); PROTHROMBIN TIME (PATIENT) 10.5 SECONDS (9.6-11.5)
[2016-11-13 07:19] LABS: BUN/CREATININE RATIO 17.27; CALCIUM SERUM 9.9 mg/dL (8.4-10.2); CREATININE SERUM 1.1 mg/dL (0.6-1.4); GLOM FILT RATE Estimated 45.4 mL/min (>60); MAGNESIUM 2.4 mg/dL (1.6-3.0); POTASSIUM 4.2 mmol/L (3.5-5.1)
[2016-11-14 06:56] LABS: BUN/CREATININE RATIO 21.66; CALCIUM SERUM 9.6 mg/dL (8.4-10.2); CREATININE SERUM 1.2 mg/dL (0.6-1.4); GLOM FILT RATE Estimated 40.9 mL/min (>60); POTASSIUM 4.2 mmol/L (3.5-5.1)
[2016-11-15 05:55] LABS: HEMATOCRIT 35.1 % (35.0-45.0); HEMOGLOBIN 11.5 gm/dL (12.0-16.0); MEAN CELL VOLUME 92.1 FL (83-96); MEAN CORPUSCULAR HEMOGLOBIN 30.1 PG (28-34); MEAN CORPUSCULAR HGB CONC 32.7 g/dL (30-36); MEAN PLATELET VOLUME 8.6 FL (6.5-11.5); RED BLOOD COUNT 3.81 X10e (3.90-5.30); RED CELL DISTRIBUTION WIDTH 13.6 % (11.0-15.5); WHITE BLOOD COUNT 8.7 X10e3 (4.0-10.5)
[2016-11-15 06:23] LABS: BUN/CREATININE RATIO 15.33; CALCIUM SERUM 9.2 mg/dL (8.4-10.2); CREATININE SERUM 1.5 mg/dL (0.6-1.4); GLOM FILT RATE Estimated 31.2 mL/min (>60); MAGNESIUM 1.9 mg/dL (1.6-3.0); POTASSIUM 4.2 mmol/L (3.5-5.1)
[2016-11-15 09:08] LABS: ALDOSTERONE SERUM 2 ng/dL (***)
[2016-11-15 11:02] LABS: PHOSPHOROUS 4.1 mg/dL (2.5-4.6); URIC ACID 9.1 mg/dL (2.6-7.2)
[2016-11-16 06:57] LABS: BUN/CREATININE RATIO 14.16; CREATININE SERUM 1.2 mg/dL (0.6-1.4); GLOM FILT RATE Estimated 40.9 mL/min (>60); POTASSIUM 3.7 mmol/L (3.5-5.1); URIC ACID 8.2 mg/dL (2.6-7.2)
[2016-11-16] MEDS ORDERED: LIPITOR40 MG PO (10:52)
[2016-11-16] MEDS ORDERED: AMLODIPINE BESY10 MG PO (10:53)
[2016-11-16] MEDS ORDERED: IMDUR-ER30 M1 PO (10:57)
[2016-11-16] MEDS ORDERED: HYDROCHLOROTH12.5 M1 PO (10:57)
== END 2016-11-16 16:57 | disposition home or self-care (01) | DRG 281 ==
LOC: CED 23:57 → CEDOF 11-09 05:05 → CICCU3 11-09 07:49 → C5C 11-11 22:00
PROVIDERS: Emergency Medicine; Internal Medicine; Internal Medicine Cardiovascular Disease; Internal Medicine Nephrology; Nurse Practitioner; Nurse Practitioner Family
PROC: B246ZZZ Ultrasonography of Right and Left Heart (ICD-10-PCS; 2016-11-09)
PROC: 4A023N7 Measurement of Cardiac Sampling and Pressure, Left Heart, Percutaneous Approach (ICD-10-PCS; principal; 2016-11-13)
PROC: B211YZZ Fluoroscopy of Multiple Coronary Arteries using Other Contrast (ICD-10-PCS; 2016-11-13)
DX: I21.4 Non-ST elevation (NSTEMI) myocardial infarction (principal); I16.1 Hypertensive emergency; N17.9 Acute kidney failure, unspecified; I49.5 Sick sinus syndrome; E87.1 Hypo-osmolality and hyponatremia; I12.9 Hypertensive chronic kidney disease with stage 1 through stage 4 chronic kidney disease, or unspecified chronic kidney disease; N18.3 Chronic kidney disease, stage 3 (moderate); Z87.891 Personal history of nicotine dependence; I25.118 Atherosclerotic heart disease of native coronary artery with other forms of angina pectoris; Z95.5 Presence of coronary angioplasty implant and graft; E86.9 Volume depletion, unspecified; E78.5 Hyperlipidemia, unspecified; J44.9 Chronic obstructive pulmonary disease, unspecified; I08.3 Combined rheumatic disorders of mitral, aortic and tricuspid valves; E03.9 Hypothyroidism, unspecified; K29.70 Gastritis, unspecified, without bleeding; I71.2 Thoracic aortic aneurysm, without rupture; J84.10 Pulmonary fibrosis, unspecified; K21.9 Gastro-esophageal reflux disease without esophagitis; M19.90 Unspecified osteoarthritis, unspecified site; E87.6 Hypokalemia; K44.9 Diaphragmatic hernia without obstruction or gangrene; K59.00 Constipation, unspecified; Z79.82 Long term (current) use of aspirin; Z98.49 Cataract extraction status, unspecified eye; Z91.040 Latex allergy status; Z88.2 Allergy status to sulfonamides; Z88.8 Allergy status to other drugs, medicaments and biological substances; Z91.048 Other nonmedicinal substance allergy status
CPT/HCPCS: 36415; 70450; 71010; 71250; 74176; 76770; 80048; 80053; 80061; 80076; 81003; 82088; 82550; 82553; 82947; 83735; 83880; 84100; 84132; 84244; 84443; 84484; 84550; 85025; 85027; 85610; 85730; 93005; 93306; 96361; 96374; 96375; 96376; 97163; 97167; 99291; C1769; C1887; C1894; C9113; G8978-GP; G8979-GP; G8980-GP; G8987-GO; G8988-GO; G8989-GO; J0360; J1644; J1650; J2250; J2270; J2405; J2550; J3010; J3475; J3490